=== PATIENT | female | born 1990 | race African-American/Black ===

== ENCOUNTER 2019-02-24 17:43 | Emergency (ER) | payer MEDICAID ==
[~2019-02-24] VITALS: Ht 160 cm; Wt 63.0 kg
[2019-02-24 19:30] VITALS: BP 122/72
== END 2019-02-24 19:30 | disposition home or self-care (01) ==
LOC: ER 17:43
DX: J45.909 Unspecified asthma, uncomplicated (principal); H10.021 Other mucopurulent conjunctivitis, right eye
CPT/HCPCS: 99282